=== PATIENT | female | born 1980 | race Caucasian/White ===

== ENCOUNTER 2019-08-31 19:42 | Emergency (ER) | payer OTHER ==
[~2019-08-31] VITALS: Ht 152.4 cm; Wt 104.8 kg
[2019-08-31 19:55] VITALS: BP 127/74
--- NOTE | 2019-08-31 19:59 | NUR ---
PT TRIAGED AND SENT TO LOBBY. VSS. WAITING FOR AVAILABLE BED
--- NOTE | 2019-08-31 21:16 | NUR ---
PT AMBULATED TO ER BED 03
--- NOTE | 2019-08-31 21:25 | NUR ---
ASSESSMENT COMPLETE AT THIS TIME. SEE ASSESSMENT. PATIENT SITTING UP IN BED. BED LOW AND LOCKED SIDE RAILS UP X 1. STATES NO NEEDS AT THIS TIME.
--- NOTE | 2019-08-31 21:27 | NUR ---
PATIENT SITTING UP IN BED. BED LOW AND LOCKED SIDE RAILS UP X 1. STATES NO NEEDS AT THIS TIME.
--- NOTE | 2019-08-31 21:27 | NUR ---
Kaye dailey in ED - 08/31/19 at 2128 by ELADIA PATIENT SITTING UP IN BED. BED LOW AND LOCKED SIDE RAILS UP X 1. STATES NO NEEDS AT THIS TIME.
--- NOTE | 2019-08-31 21:50 | NUR ---
DR GOLD AT BEDSIDE.
[2019-08-31 22:11] VITALS: BP 132/68
== END 2019-08-31 22:11 | disposition home or self-care (01) ==
LOC: MED 19:42
DX: M79.631 Pain in right forearm (principal)
CPT/HCPCS: 99282